=== PATIENT | male | born 1980 | race Caucasian/White ===

== ENCOUNTER → 2021-11-01 | Day surgery (SDC) | payer OTHER ==
[~2021-11-01] MED LIST: ACETAMINOPHEN 1000 MG/100 ML IV ONE; ARAVA20 MG PO; DEXAMETHASONE SOD PHOS INJ 4 MG/ML SDV ONE; FENTANYL CITRATE/PF 100MCG/2 ML INJ ONE; KETOROLAC TROMETHAMINE 30 MG/ML VIAL ONE; LIDOCAINE HCL 2% LOCAL INJ 5 ML SDV VIAL INJ ONE; MIDAZOLAM HCL 2 MG/2 ML VIAL ONE; MULTI-VITAMIN1 EACH PO; ONDANSETRON HCL INJ 2MG/ML 2ML 2 MG/ML VIAL ONE; POVIDONE IODINE 0.05% 0.05 % ML PO ONE; PROPOFOL IV EMULSION 10 MG/ML 20 ML VIAL ONE; SEVOFLURANE INHAL SOLN 250 ML PEN BTL ONE
[2021-11-01 12:25] VITALS: BP 129/85
== END | disposition home or self-care (01) ==
LOC: OR 07:58
PROVIDERS: ATTEND Specialist
DX: S83.212A Bucket-handle tear of medial meniscus, current injury, left knee, initial encounter (principal); S83.512A Sprain of anterior cruciate ligament of left knee, initial encounter; M65.9 Synovitis and tenosynovitis, unspecified; M06.9 Rheumatoid arthritis, unspecified; L40.50 Arthropathic psoriasis, unspecified; R01.1 Cardiac murmur, unspecified; X58.XXXA Exposure to other specified factors, initial encounter; Z01.810 Encounter for preprocedural cardiovascular examination; Z01.812 Encounter for preprocedural laboratory examination; Z20.822 Contact with and (suspected) exposure to COVID-19
CPT/HCPCS: 0223U; 29881; 36415; 93005; J0131; J0690; J1100; J1885; J2001; J2250; J2405; J2704; J3010